=== PATIENT | male | born 1975 | race Caucasian/White ===

== ENCOUNTER 2019-03-21 07:38 | Day surgery (SDC) | payer OTHER ==
[2019-03-20 15:11] VITALS: BMI 30.2
[2019-03-21 10:50] VITALS: TEMP 97.9
[2019-03-21 11:10] VITALS: BP 143/53; PULSE 68
== END 2019-03-21 11:37 | disposition home or self-care (01) ==
LOC: JASU-ENDO 07:38
PROVIDERS: ATTEND Internal Medicine Gastroenterology
PROC: 0DB68ZX Excision of Stomach, Via Natural or Artificial Opening Endoscopic, Diagnostic (ICD-10-PCS; principal; 2019-03-21 09:30)
DX: K25.9 Gastric ulcer, unspecified as acute or chronic, without hemorrhage or perforation (principal); D64.9 Anemia, unspecified

== ENCOUNTER 2019-03-28 10:36 | Day surgery (SDC) | payer OTHER ==
--- NOTE | 2019-03-22 11:36 | PATH ---
Surgical Pathology Report Patient Name: SARI MATHIS [facility]. Rec. #: [id number] /Age/Gender: 1975 (Age: 43) / M Account: [id number] Location: [facility]-ENDOSCOPY Taken: 03/21/2019 Received: 03/21/2019 Reported: 03/22/2019 Physicians: Yakov Medeiros D.O. Specimen(s) Received A: ANTRAL EROSION B: BODY H.PYLORI Clinical History Anemia Postoperative diagnosis: Gastritis Final Diagnosis A. STOMACH, ANTRUM, BIOPSY: GASTRIC ANTRAL MUCOSA WITH REACTIVE GASTROPATHY. IMMUNOSTAIN FOR H. PYLORI IS NEGATIVE. B. STOMACH, ANGULARIS AND BODY, BIOPSY: GASTRIC FUNDIC MUCOSA WITH FOCAL MILD CHRONIC GASTRITIS. IMMUNOSTAIN FOR H. PYLORI IS NEGATIVE. Electronically Signed Robin Jiménez M.D. Gross Description A. Received in formalin, labeled "biopsy antral erosion" are 3 lee, irregular portions of soft tissue averaging 0.2 cm. in greatest dimension. The specimens are submitted in toto in one cassette. B. Received in formalin, labeled "biopsy angularis/body" are 2 lee, irregular portions of soft tissue measuring 0.2 and 0.4 cm. in greatest dimension. The specimens are submitted in toto in one cassette. 03/21/2019 saudi03/21/2019
[2019-03-28 11:13] VITALS: BMI 30.2
[2019-03-28 13:10] VITALS: TEMP 97.8
[2019-03-28 13:51] VITALS: BP 101/54; PULSE 66
--- NOTE | 2019-03-30 11:39 | PATH ---
Surgical Pathology Report Patient Name: SARI MATHIS [facility]. Rec. #: [id number] /Age/Gender: 1975 (Age: 43) / M Account: [id number] Location: [facility]-ENDOSCOPY Taken: 03/28/2019 Received: 03/29/2019 Reported: 03/30/2019 Physicians: Yakov Medeiros D.O. Specimen(s) Received TRANSVERSE COLON POLYP Clinical History Anemia Postoperative diagnosis: Polyp Final Diagnosis TRANSVERSE COLON, POLYP, BIOPSY: POLYPOID COLONIC MUCOSA WITH PROMINENT LYMPHOID AGGREGATES. Electronically Signed Wendy Sam M.D. Gross Description Received in formalin, labeled "biopsy transverse colon polyp" is a lee, irregular portion of soft tissue measuring 0.2 cm. in greatest dimension. The specimen is submitted in toto in one cassette. /03/29/2019 saudi03/29/2019
== END 2019-03-28 14:32 | disposition home or self-care (01) ==
LOC: JASU-ENDO 10:36
PROVIDERS: ATTEND Internal Medicine Gastroenterology
PROC: 0DBL8ZX Excision of Transverse Colon, Via Natural or Artificial Opening Endoscopic, Diagnostic (ICD-10-PCS; principal; 2019-03-28 11:30)
DX: D64.9 Anemia, unspecified (principal); K64.8 Other hemorrhoids; K29.50 Unspecified chronic gastritis without bleeding
CPT/HCPCS: 88305-TC; 88342-TC